=== PATIENT | male | born 1960 | race Two or more races ===

== ENCOUNTER 2020-05-08 13:06 | Observation (INO) | payer OTHER ==
[~2020-05-08] VITALS: Ht 170.2 cm; Wt 113.0 kg
[~2020-05-08 13:06] MED LIST: ASPI325T17 PO; ATOR40TA78 PO; EPINEPHRINE 1 MG/ML, 1ML ONE; HYDR-3246 PO; ISOS30TA8 PO; KETOROLAC 60 MG/2 ML ONE; LISI5TAB7 PO; METF500T17 PO; METH5TAB6 PO; METO25TA35 PO; PANT40TA6 PO; ROPIvacaine/PF 0.2%, 20 ML ONE; SODIUM CHLORIDE 0.9% 50 ML ONE; TRANEXAMIC ACID 100 MG/ML, 10ML ONE; TRIA16.911 NAS
[2020-05-08] MEDS ORDERED: CHLORHEXIDINE 15 ML UDC MM STA (13:16)
[2020-05-08] MEDS ORDERED: LACTATED RINGERS 1,000 ML IV STA (13:16)
[2020-05-08] MEDS ORDERED: CHLORHEXIDINE 15 ML UDC ONE (13:32)
[2020-05-08] MEDS ORDERED: MIDAZOLAM 1 MG/ML, 2ML ONE (13:55)
[2020-05-08] MEDS ORDERED: FENTANYL PF 100 MCG/2ML ONE ×6 (13:55→17:05)
[2020-05-08] MEDS ORDERED: GLYCOPYRROLATE 0.2MG/1ML, 5ML ONE (13:56)
[2020-05-08] MEDS ORDERED: ROCURONIUM 10MG/ML,5ML ONE (13:56)
[2020-05-08] MEDS ORDERED: PROPOFOL 10 MG/ML, 20ML ONE (13:56)
[2020-05-08] MEDS ORDERED: CEFAZOLIN 1,000 MG ONE (13:56)
[2020-05-08] MEDS ORDERED: NEOSTIGMINE 1 MG/ML, 10ML ONE (13:56)
[2020-05-08] MEDS ORDERED: LACTATED RINGERS 1,000 ML IV ONE (14:30)
[2020-05-08] MEDS ORDERED: ONDANSETRON 2MG/ML, 2ML IVPush PRN (15:00)
[2020-05-08] MEDS ORDERED: morphine SULFATE 10 MG/ML, 1ML IVPush PRN (15:00)
[2020-05-08] MEDS ORDERED: MEPERIDINE/PF 25MG/0.5ML IVPush PRN (15:00)
[2020-05-08] MEDS ORDERED: ACETAMINOPHEN 325 MG TABLET PO PRN (15:00)
[2020-05-08] MEDS ORDERED: ACETAMINOPHEN 650 MG/20.3 ML UDC PO PRN (15:00)
[2020-05-08] MEDS ORDERED: DIPHENHYDRAMINE 50 MG/ML, 1ML IVPush PRN (15:00)
[2020-05-08] MEDS ORDERED: SENNA/DOCUSATE TABLET PO PRN (15:00)
[2020-05-08] MEDS ORDERED: LABETALOL 5MG/ML, 20ML IV PRN (15:00)
[2020-05-08] MEDS ORDERED: PSYLLIUM PACKET PO PRN (15:00)
[2020-05-08] MEDS ORDERED: ONDANSETRON 4 MG TABLET PO PRN (15:00)
[2020-05-08] MEDS ORDERED: MAGNESIUM HYDROXIDE 8%, 30ML UDC PO PRN (15:00)
[2020-05-08] MEDS ORDERED: METOCLOPRAMIDE 5 MG/ML, 2ML IVPush PRN (15:00)
[2020-05-08] MEDS ORDERED: OXYcodone 5 MG/5 ML ORAL.SOL UDC PO PRN (15:00)
[2020-05-08] MEDS ORDERED: DIPHENHYDRAMINE 25 MG CAPSULE PO PRN (15:00)
[2020-05-08] MEDS ORDERED: POLYETHYLENE GLYCOL 17 GM PACKET PO PRN (15:00)
[2020-05-08] MEDS ORDERED: HYDROmorphone 1 MG/ML, 1ML INJ IVPush PRN (15:00)
[2020-05-08] MEDS ORDERED: hydrALAzine 20 MG/ML, 1ML IV PRN (15:00)
[2020-05-08] MEDS ORDERED: ALUMINUM/MAG/SIMETHICONE 30 ML UDC PO PRN (15:00)
[2020-05-08] MEDS ORDERED: PHENYLEPHRINE 10 MG/ML ONE (15:17)
[2020-05-08] MEDS: FENTANYL PF 100 MCG/2ML IV PRN ×4 (16:52→17:22)
[2020-05-08] MEDS ORDERED: OXYcodone 5 MG/5 ML ORAL.SOL UDC ONE (16:57)
[2020-05-08] MEDS ORDERED: HYDROmorphone 1 MG/ML, 1ML INJ ONE (16:57)
[2020-05-08] MEDS ORDERED: TRANEXAMIC ACID 1,000 MG in SODIUM CHLORIDE 0.9% 100 ML IVPB ONE (17:01)
[2020-05-08] MEDS: HYDROmorphone 1 MG/ML, 1ML INJ IVPush PRN ×2 (17:07→17:26)
[2020-05-08] MEDS: POTASSIUM CHLORIDE 20 MEQ in D5%-0.45% NACL 1,000 ML IV SCH (19:41)
[2020-05-08] MEDS: KETOROLAC 30 MG/1 ML IV SCH (19:41)
[2020-05-08] MEDS ORDERED: ATORVASTATIN 40 MG TABLET PO SCH (21:00)
[2020-05-08] MEDS: DOCUSATE 100 MG CAPSULE PO SCH (21:32)
[2020-05-08] MEDS: OXYcodone IR 5MG TABLET PO PRN (21:33)
[2020-05-08] MEDS: ONDANSETRON 2MG/ML, 2ML IVPush PRN (22:36)
[2020-05-08 23:59] VITALS: BP 99/63
[2020-05-09] MEDS: CEFAZOLIN PMX 1GM/50ML 50 ML IVPB SCH ×2 (01:50→10:11)
[2020-05-09] MEDS: OXYcodone IR 5MG TABLET PO PRN ×3 (01:50→11:35)
[2020-05-09 03:25] VITALS: BP 111/73
[2020-05-09] MEDS: POTASSIUM CHLORIDE 20 MEQ in D5%-0.45% NACL 1,000 ML IV SCH (04:45)
[2020-05-09] MEDS ORDERED: PANTOPRAZOLE 40MG TABLET PO SCH (06:00)
[2020-05-09] MEDS ORDERED: DEXAMETHASONE 4 MG/ML, 1ML IVPush SCH (06:00)
[2020-05-09] MEDS: RIVAROXABAN 10 MG TABLET PO SCH ×2 (06:16→08:49)
[2020-05-09] MEDS: KETOROLAC 30 MG/1 ML IV SCH (06:19)
[2020-05-09] MEDS: ONDANSETRON 2MG/ML, 2ML IVPush PRN (06:19)
[2020-05-09 06:37] VITALS: BP 97/58
[2020-05-09] MEDS ORDERED: SODIUM CHLORIDE 0.9% 1,000ML IVBOLUS ONE (07:30)
[2020-05-09] MEDS ORDERED: metFORMIN 500 MG TABLET PO SCH (08:00)
[2020-05-09] MEDS: DOCUSATE 100 MG CAPSULE PO SCH (08:42)
[2020-05-09] MEDS ORDERED: LISINOPRIL 5 MG TABLET PO SCH (09:00)
[2020-05-09] MEDS ORDERED: METOPROLOL TARTRATE 25 MG TAB PO SCH (09:00)
[2020-05-09] MEDS ORDERED: METHIMAZOLE 5 MG TAB PO SCH (09:00)
[2020-05-09] MEDS ORDERED: ISOSORBIDE MONONITRATE ER 30 MG TABLET PO SCH (09:00)
[2020-05-09] MEDS ORDERED: FLUTICASONE NASAL SPRAY 16GM NAS SCH (09:00)
[2020-05-09] MEDS ORDERED: TAMSULOSIN 0.4 MG CAP.ER.24H PO SCH (09:00)
[2020-05-09 10:13] VITALS: BP 113/76
[2020-05-09] MEDS ORDERED: FLU VACC QS2020-21(6MOS UP)/PF 60MCG/0.5 ML SYR IM-VACC ONE (10:30)
== END 2020-05-09 12:40 | disposition home or self-care (01) ==
LOC: OUT 13:06 → ORIP 14:58 → 4NE 18:17 → DCLOUNGE 05-09 12:29
PROVIDERS: ADMIT Orthopaedic Surgery; ATTEND Orthopaedic Surgery
DX: M17.12 Unilateral primary osteoarthritis, left knee (principal); I10 Essential (primary) hypertension; I25.10 Atherosclerotic heart disease of native coronary artery without angina pectoris; E11.9 Type 2 diabetes mellitus without complications; E78.5 Hyperlipidemia, unspecified; K21.9 Gastro-esophageal reflux disease without esophagitis; E03.9 Hypothyroidism, unspecified; Z88.0 Allergy status to penicillin; Z79.899 Other long term (current) drug therapy; Z23 Encounter for immunization
CPT/HCPCS: 27447; 73560; 82962; 85014; 85018; 90471; 90686; 96361; 96365; 96366; 96375; 96376; 97161; 97165; C1713; C1776; G0378; J0171; J0690; J1100; J1170; J1885; J2250; J2370; J2405; J2704; J2710; J2795; J3010; J3480; J7030; J7120

== ENCOUNTER → 2020-09-19 | Outpatient (CLI) | payer OTHER ==
[~2020-09-19] MED LIST changes: -EPINEPHRINE 1 MG/ML, 1ML ONE; -HYDR-3246 PO; +HYDR-3248 PO; -KETOROLAC 60 MG/2 ML ONE; -ROPIvacaine/PF 0.2%, 20 ML ONE; +SIMV40TA20 PO; -SODIUM CHLORIDE 0.9% 50 ML ONE; -TRANEXAMIC ACID 100 MG/ML, 10ML ONE
[2020-09-19 09:52] LABS: BASOPHILS % (AUTO) 1 % (0-1); EOSINOPHILS % (AUTO) 4 % (1-7); LYMPHOCYTES % (AUTO) 35 % (22-44); MD NO; MEAN CORPUSCULAR HGB CONC 33.3 g/dL (33.2-36.2); MEAN PLATELET VOLUME 9.4 fL (7.4-10.4); MONOCYTES % (AUTO) 8 % (2-9); NEUTROPHILS % (AUTO) 52 % (42-75); PLATELET COUNT 158 x10^3/uL (130-400); RED BLOOD COUNT 4.83 x10^6/uL (4.38-5.82); RED CELL DISTRIBUTION WIDTH 15.6 % (9.4-14.8)
[2020-09-19 10:00] LABS: ALBUMIN 3.7 g/dL (3.4-5.0); ANION GAP 6 mmol/L (5-15); CALCIUM 8.8 mg/dL (8.5-10.1); CHLORIDE 106 mmol/L (98-107)
[2020-09-19 10:01] LABS: INTERNATIONAL NORMALIZED RATIO 1.02 (0.93-1.1); PROTHROMBIN TIME 10.9 Seconds (9.6-11.5)
[2020-09-19 10:04] LABS: ALANINE AMINOTRANSFERASE 31 U/L (12-78); ALKALINE PHOSPHATASE 104 U/L (45-117); BILIRUBIN,TOTAL 0.3 mg/dL (0.2-1.0); TOTAL PROTEIN 7.1 g/dL (6.4-8.2)
== END | disposition home or self-care (01) ==
LOC: STAR 08:15
PROVIDERS: ATTEND Orthopaedic Surgery
DX: Z01.812 Encounter for preprocedural laboratory examination (principal); Z20.822 Contact with and (suspected) exposure to COVID-19; M17.11 Unilateral primary osteoarthritis, right knee; I25.2 Old myocardial infarction
CPT/HCPCS: 80053; 83036; 85025; 85610; 85730; 87081; 87635; 87806; 93005; G0475

== ENCOUNTER 2020-09-25 09:38 | Observation (INO) | payer OTHER ==
[~2020-09-25] VITALS: Ht 170.2 cm; Wt 111.4 kg
[2020-09-25] MEDS ORDERED: KETOROLAC 60 MG/2 ML ONE (09:48)
[2020-09-25] MEDS ORDERED: EPINEPHRINE 1 MG/ML, 1ML ONE (09:49)
[2020-09-25] MEDS ORDERED: CHLORHEXIDINE 15 ML UDC MM STA (09:49)
[2020-09-25] MEDS ORDERED: ROPIvacaine/PF 0.2%, 20 ML ONE (09:49)
[2020-09-25] MEDS ORDERED: LACTATED RINGERS 1,000 ML IV SCH (10:00)
[2020-09-25] MEDS ORDERED: VANCOMYCIN 1,000 MG ONE ×2 (10:50)
[2020-09-25] MEDS ORDERED: ACETAMINOPHEN 500 MG TABLET PO ONE ×2 (11:00→11:30)
[2020-09-25] MEDS ORDERED: GABAPENTIN 300 MG CAPSULE PO ONE (11:00)
[2020-09-25] MEDS ORDERED: GABAPENTIN 300 MG CAPSULE PO SCH (11:30)
[2020-09-25] MEDS ORDERED: FENTANYL PF 250 MCG/5ML ONE (11:52)
[2020-09-25] MEDS ORDERED: MIDAZOLAM 1 MG/ML, 2ML ONE (11:52)
[2020-09-25] MEDS ORDERED: METOCLOPRAMIDE 5 MG/ML, 2ML IVPush PRN (12:30)
[2020-09-25] MEDS ORDERED: ONDANSETRON 2MG/ML, 2ML IVPush PRN (12:30)
[2020-09-25] MEDS ORDERED: ACETAMINOPHEN 650 MG/20.3 ML UDC PO PRN (12:30)
[2020-09-25] MEDS ORDERED: MAGNESIUM HYDROXIDE 8%, 30ML UDC PO PRN (12:30)
[2020-09-25] MEDS ORDERED: ONDANSETRON 4 MG TABLET PO PRN (12:30)
[2020-09-25] MEDS ORDERED: PROMETHAZINE 25 MG/ML, 1ML IM PRN (12:30)
[2020-09-25] MEDS ORDERED: ALUMINUM/MAG/SIMETHICONE 30 ML UDC PO PRN (12:30)
[2020-09-25] MEDS ORDERED: DIPHENHYDRAMINE 50 MG/ML, 1ML IVPush PRN (12:30)
[2020-09-25] MEDS: ACETAMINOPHEN 325 MG TABLET PO SCH ×3 (12:30→21:01)
[2020-09-25] MEDS ORDERED: DIPHENHYDRAMINE 25 MG CAPSULE PO PRN (12:30)
[2020-09-25] MEDS ORDERED: SENNA/DOCUSATE TABLET PO PRN (12:30)
[2020-09-25] MEDS ORDERED: HYDROmorphone 1 MG/ML, 1ML INJ IVPush PRN (12:30)
[2020-09-25] MEDS ORDERED: POLYETHYLENE GLYCOL 17 GM PACKET PO PRN (12:30)
[2020-09-25] MEDS ORDERED: TRANEXAMIC ACID 100 MG/ML, 10ML ONE (12:36)
[2020-09-25] MEDS ORDERED: ROPIvacaine/PF 0.2%, 100ML 550 ML (check volume) INJ ONE (13:00)
[2020-09-25] MEDS ORDERED: ONDANSETRON 2MG/ML, 2ML ONE (13:26)
[2020-09-25] MEDS ORDERED: SUCCINYLCHOLINE 20 MG/ML, 10ML ONE (13:26)
[2020-09-25] MEDS ORDERED: DEXAMETHASONE 4 MG/ML, 1ML ONE (13:26)
[2020-09-25] MEDS ORDERED: PROPOFOL 10 MG/ML, 20ML ONE (13:26)
[2020-09-25] MEDS ORDERED: ROCURONIUM 10MG/ML,5ML ONE (13:26)
[2020-09-25] MEDS ORDERED: NEOSTIGMINE 1 MG/ML, 10ML ONE ×2 (13:26)
[2020-09-25] MEDS ORDERED: GLYCOPYRROLATE 0.2MG/1ML, 5ML ONE (13:26)
[2020-09-25] MEDS ORDERED: CEFAZOLIN 1,000 MG ONE (13:26)
[2020-09-25] MEDS ORDERED: OXYcodone 5 MG/5 ML ORAL.SOL UDC PO PRN (13:30)
[2020-09-25] MEDS ORDERED: hydrALAzine 20 MG/ML, 1ML IV PRN (13:30)
[2020-09-25] MEDS ORDERED: MEPERIDINE/PF 25MG/0.5ML IVPush PRN (13:30)
[2020-09-25] MEDS ORDERED: DIAZEPAM 5 MG/ML, 2ML IVPush PRN (13:30)
[2020-09-25] MEDS ORDERED: HYDROmorphone 2 MG/ML, 1ML IVPush PRN (13:30)
[2020-09-25] MEDS ORDERED: ALBUTEROL SULFATE 2.5 MG/3 ML NPPB PRN (13:30)
[2020-09-25] MEDS ORDERED: LABETALOL 5MG/ML, 20ML IV PRN (13:30)
[2020-09-25] MEDS ORDERED: PROMETHAZINE 25 MG/ML, 1ML IV PRN (13:30)
[2020-09-25] MEDS ORDERED: FENTANYL PF 100 MCG/2ML ONE ×3 (13:32→15:26)
[2020-09-25] MEDS: FENTANYL PF 100 MCG/2ML IV PRN ×3 (14:10→15:25)
[2020-09-25] MEDS ORDERED: TRANEXAMIC ACID 1,000 MG in SODIUM CHLORIDE 0.9% 100 ML IVPB ONE (14:10)
[2020-09-25] MEDS ORDERED: OXYcodone 5 MG/5 ML ORAL.SOL UDC ONE (14:32)
[2020-09-25 16:14] VITALS: BP 124/77
[2020-09-25] MEDS: KETOROLAC 30 MG/1 ML IV SCH (16:55)
[2020-09-25] MEDS: POTASSIUM CHLORIDE 20 MEQ in D5%-0.45% NACL 1,000 ML IV SCH (16:55)
[2020-09-25] MEDS: metFORMIN 500 MG TABLET PO SCH (17:16)
[2020-09-25 19:18] VITALS: BP 97/63
[2020-09-25] MEDS: CEFAZOLIN PMX 1GM/50ML 50 ML IVPB SCH (19:44)
[2020-09-25] MEDS: DOCUSATE 100 MG CAPSULE PO SCH (20:23)
[2020-09-25] MEDS: OXYcodone IR 5MG TABLET PO PRN ×2 (20:23→21:00)
[2020-09-25] MEDS ORDERED: SIMVASTATIN 40 MG TABLET PO SCH (21:00)
[2020-09-25 23:26] VITALS: BP 117/72
[2020-09-26] MEDS: ACETAMINOPHEN 325 MG TABLET PO SCH ×3 (00:38→08:23)
[2020-09-26] MEDS: KETOROLAC 30 MG/1 ML IV SCH ×2 (00:38→08:22)
[2020-09-26] MEDS: OXYcodone IR 5MG TABLET PO PRN ×3 (01:10→11:04)
[2020-09-26] MEDS: POTASSIUM CHLORIDE 20 MEQ in D5%-0.45% NACL 1,000 ML IV SCH (02:39)
[2020-09-26 03:29] VITALS: BP 135/75
[2020-09-26] MEDS: CEFAZOLIN PMX 1GM/50ML 50 ML IVPB SCH (04:37)
[2020-09-26] MEDS ORDERED: DEXAMETHASONE 4 MG/ML, 1ML IVPush ONE (06:00)
[2020-09-26] MEDS ORDERED: PANTOPRAZOLE 40MG TABLET PO SCH (06:00)
[2020-09-26] MEDS ORDERED: RIVAROXABAN 10 MG TABLET PO SCH (06:00)
[2020-09-26] MEDS ORDERED: METOPROLOL SUCCINATE 25 MG TAB.ER.24H PO SCH (06:00)
[2020-09-26 06:25] VITALS: BP 144/91
[2020-09-26] MEDS: DOCUSATE 100 MG CAPSULE PO SCH (08:23)
[2020-09-26] MEDS: metFORMIN 500 MG TABLET PO SCH (08:23)
[2020-09-26] MEDS ORDERED: ISOSORBIDE MONONITRATE ER 30 MG TABLET PO SCH (09:00)
[2020-09-26] MEDS ORDERED: FLUTICASONE NASAL SPRAY 16GM NAS SCH (09:00)
[2020-09-26] MEDS ORDERED: METHIMAZOLE 5 MG TAB PO SCH (09:00)
[2020-09-26] MEDS ORDERED: TAMSULOSIN 0.4 MG CAP.ER.24H PO SCH (09:00)
[2020-09-26] MEDS ORDERED: LISINOPRIL 5 MG TABLET PO SCH (09:00)
[2020-09-26] MEDS ORDERED: RIVA10TA2 PO (11:16)
== END 2020-09-26 12:00 | disposition home or self-care (01) ==
LOC: OUT 09:38 → ORIP 12:11 → 4NE 16:19 → DCLOUNGE 09-26 11:46
PROVIDERS: ADMIT Orthopaedic Surgery; ATTEND Orthopaedic Surgery
DX: M17.11 Unilateral primary osteoarthritis, right knee (principal); M71.21 Synovial cyst of popliteal space [Baker], right knee; I25.10 Atherosclerotic heart disease of native coronary artery without angina pectoris; I10 Essential (primary) hypertension; E11.9 Type 2 diabetes mellitus without complications; Z88.0 Allergy status to penicillin; Z79.899 Other long term (current) drug therapy
CPT/HCPCS: 27447; 36415; 73560; 82962; 85014; 85018; 96361; 96365; 96366; 96375; 96376; 97110; 97116; 97161; C1713; C1776; G0378; J0171; J0330; J0690; J1100; J1885; J2250; J2405; J2704; J2710; J2795; J3010; J3370; J3480; J7120